=== PATIENT | female | born 1945 | race Native Hawaiian/Other Pacific Islander ===

== ENCOUNTER 2019-05-21 10:42 | Outpatient (CLI) | payer OTHER, MEDICARE ==
[2019-05-21 11:07] LABS: PLATELET COUNT 298 K/uL (152-353)
[2019-05-21 11:18] LABS: POTASSIUM 3.7 mmol/L (3.6-5.2)
== END 2019-05-21 19:29 | disposition home or self-care (01) ==
LOC: LABW 10:42
PROVIDERS: Internal Medicine
DX: N18.3 Chronic kidney disease, stage 3 (moderate) (principal)
CPT/HCPCS: 36415; 80053; 81000; 82043; 82570; 83735; 84100; 84155; 85027

== ENCOUNTER 2019-05-28 12:28 | Outpatient (CLI) | payer OTHER, MEDICARE | END 2019-05-28 19:20 | disposition home or self-care (01) | LOC: LABW 12:28 | DX: R31.21 Asymptomatic microscopic hematuria (principal) | CPT/HCPCS: 81000 ==

== ENCOUNTER 2020-04-14 14:22 | Outpatient (CLI) | payer OTHER, MEDICARE | END 2020-04-14 21:37 | disposition home or self-care (01) | LOC: MAMMO 14:22 | PROVIDERS: ATTEND Nurse Practitioner Family | DX: Z00.00 Encounter for general adult medical examination without abnormal findings (principal); E78.49 Other hyperlipidemia; E03.8 Other specified hypothyroidism; N18.30 Chronic kidney disease, stage 3 unspecified; C82.90 Follicular lymphoma, unspecified, unspecified site; Z12.31 Encounter for screening mammogram for malignant neoplasm of breast; N95.8 Other specified menopausal and perimenopausal disorders ==

== ENCOUNTER 2020-05-20 13:38 | Outpatient (CLI) | payer OTHER, MEDICARE ==
[2020-05-20 14:10] LABS: PLATELET COUNT 280 K/uL (152-353)
== END 2020-05-20 21:14 | disposition home or self-care (01) ==
LOC: LABW 13:38
PROVIDERS: ATTEND Internal Medicine
DX: N18.30 Chronic kidney disease, stage 3 unspecified (principal); R31.21 Asymptomatic microscopic hematuria
CPT/HCPCS: 36415; 81000; 82330; 82570; 83735; 84100; 84155; 85027

== ENCOUNTER 2020-11-16 10:10 | Outpatient (CLI) | payer OTHER, MEDICARE ==
[2020-11-16 10:28] LABS: PLATELET COUNT 258 K/uL (152-353)
== END 2020-11-16 21:14 | disposition home or self-care (01) ==
LOC: LABW 10:10
PROVIDERS: ATTEND Nurse Practitioner
DX: N18.30 Chronic kidney disease, stage 3 unspecified (principal)
CPT/HCPCS: 36415; 80053; 81000; 82330; 82570; 83735; 84100; 84155; 85027

== ENCOUNTER 2021-04-13 10:25 | Outpatient (CLI) | payer OTHER, MEDICARE ==
[2021-04-13 10:45] LABS: PLATELET COUNT 238 K/uL (152-353)
[2021-04-13 11:01] LABS: POTASSIUM 4.5 mmol/L (3.6-5.2)
== END 2021-04-13 18:59 | disposition home or self-care (01) ==
LOC: LABW 10:25
PROVIDERS: ATTEND Internal Medicine
DX: N18.30 Chronic kidney disease, stage 3 unspecified (principal)
CPT/HCPCS: 36415; 80053; 81000; 82330; 82570; 83735; 84100; 84155; 85027

== ENCOUNTER 2021-09-14 10:44 | Outpatient (CLI) | payer OTHER, MEDICARE ==
[2021-09-14 11:07] LABS: PLATELET COUNT 271 K/uL (152-353)
[2021-09-14 11:33] LABS: POTASSIUM 3.7 mmol/L (3.6-5.2)
== END 2021-09-14 20:38 | disposition home or self-care (01) ==
LOC: LABW 10:44
PROVIDERS: ATTEND Internal Medicine
DX: N18.30 Chronic kidney disease, stage 3 unspecified (principal)
CPT/HCPCS: 36415; 80053; 81002; 81015; 82330; 82570; 83735; 84100; 84156; 85027

== ENCOUNTER 2022-02-08 10:45 | Outpatient (CLI) | payer OTHER, MEDICARE ==
[2022-02-08 11:02] LABS: PLATELET COUNT 284 K/uL (152-353)
[2022-02-08 11:23] LABS: POTASSIUM 3.9 mmol/L (3.6-5.2)
== END 2022-02-08 20:13 | disposition home or self-care (01) ==
LOC: LABW 10:45
PROVIDERS: ATTEND Nurse Practitioner Family
DX: E03.8 Other specified hypothyroidism (principal); E78.49 Other hyperlipidemia; N18.30 Chronic kidney disease, stage 3 unspecified; R31.9 Hematuria, unspecified; Z86.2 Personal history of diseases of the blood and blood-forming organs and certain disorders involving the immune mechanism; Z86.79 Personal history of other diseases of the circulatory system; E55.9 Vitamin D deficiency, unspecified; I12.9 Hypertensive chronic kidney disease with stage 1 through stage 4 chronic kidney disease, or unspecified chronic kidney disease; Z09 Encounter for follow-up examination after completed treatment for conditions other than malignant neoplasm
CPT/HCPCS: 36415; 80053; 80061; 82043; 82306; 82570; 83036; 84156; 84436; 84443; 85027

== ENCOUNTER 2022-05-04 11:05 | Outpatient (CLI) | payer OTHER, MEDICARE ==
[2022-05-04 11:32] LABS: PLATELET COUNT 266 K/uL (152-353)
[2022-05-04 11:50] LABS: POTASSIUM 4.1 mmol/L (3.6-5.2)
== END 2022-05-04 18:57 | disposition home or self-care (01) ==
LOC: LABW 11:05
PROVIDERS: ATTEND Internal Medicine
DX: N18.31 Chronic kidney disease, stage 3a (principal)
CPT/HCPCS: 36415; 80053; 81002; 82043; 82306; 82330; 82570; 83735; 83970; 84100; 84156; 85027

== ENCOUNTER 2022-10-25 11:18 | Outpatient (CLI) | payer OTHER, MEDICARE ==
[2022-10-25 12:32] LABS: PLATELET COUNT 280 K/uL (152-353)
[2022-10-25 12:46] LABS: POTASSIUM 3.8 mmol/L (3.6-5.2)
== END 2022-10-25 20:25 | disposition home or self-care (01) ==
LOC: LABW 11:18
PROVIDERS: ATTEND Internal Medicine
DX: N18.31 Chronic kidney disease, stage 3a (principal)
CPT/HCPCS: 36415; 80053; 81002; 82043; 82306; 82330; 82570; 83735; 83970; 84100; 84156; 85027